=== PATIENT | male | born 1985 | race Caucasian/White ===

== ENCOUNTER 2016-10-26 13:27 | Emergency (ER) | payer MEDICAID ==
[~2016-10-26] VITALS: Ht 182.9 cm; Wt 72.6 kg
--- NOTE | 2016-10-26 13:36 | NUR ---
Pt BIB [facility] with [employer], cuffed to cot, reports pt was naked in street, acting altered. Pt appears anxious and twitchy. Pt transfered to bed 1B, cooperative, no restraints necessary, [employer] released pt. Pt denies CP, SOB, dizziness, n/v, no other complaints, no distress noted.
--- NOTE | 2016-10-26 14:00 | NUR ---
Pt refused blood draw and can not yet provide a urine sample.
--- NOTE | 2016-10-26 14:40 | NUR ---
Psych entry level account manager, Jorge Jung, determined that pt does not qualify for 5150 hold.
--- NOTE | 2016-10-26 15:02 | NUR ---
Gave pt d/c instructions and MH referral sources, verbalized understanding.
[2016-10-26 15:37] VITALS: BP 110/50
== END 2016-10-26 15:40 | disposition home or self-care (01) ==
LOC: ER 13:27
DX: F99 Mental disorder, not otherwise specified (principal); F31.9 Bipolar disorder, unspecified; F41.9 Anxiety disorder, unspecified
CPT/HCPCS: 99284; A4663

== ENCOUNTER 2016-12-04 17:26 | Emergency (ER) | payer MEDICAID ==
[~2016-12-04] VITALS: Ht 177.8 cm; Wt 68.0 kg
--- NOTE | 2016-12-04 17:37 | NUR ---
PATIENT IS AWAKE BUT SLEEPY. HE IS COMBATIVE AT TIMES, PULLING OFF THE RADIOCOMMUNICATIONS TECHNICIAN LEADS. HE IS TRYING TO GET UP AND WALK BUT HE IS A FALL RISK. SITTER CALLED TO BEDSIDE FOR CONSTANT OBSERVATION. DR BLACKWELL AWARE. MEDICATION GIVEN NOTED. PT ON CONTINOUS CARDIAC AND BEHAVIORAL MONITORING. PT ON RESTRAINTS DUE TO BEHAVIOR AND INTERUPTION OF CARE.
[2016-12-04] MEDS ORDERED: MIDAZOLAM HCL 2 MG/2 ML VIAL IM ONE (17:45)
[2016-12-04] MEDS ORDERED: IV NORMAL SALINE 1000 ML BAG IV ONE ×5 (17:45→23:30)
[2016-12-04] MEDS ORDERED: MIDAZOLAM HCL 5 MG/ML VIAL ONE ×2 (17:46→17:53)
[2016-12-04 17:55] LABS: *BILIRUBIN,URIN NEGATIVE (NEGATIVE); *BLOOD, URINE NEGATIVE (NEGATIVE); *CLARITY,URINE CLEAR (CLEAR); *KETONES,URINE NEGATIVE (NEGATIVE); *PROTEIN,URINE NEGATIVE (NEGATIVE); *UROBILINOGEN,URINE 0.2 E.U./dl (NORMAL); LEUKOCYTE ESTERASE ,URINE NEGATIVE (NEGATIVE); NITRITE, URINE NEGATIVE (NEGATIVE); UGLUCOSE NEGATIVE (NEGATIVE)
[2016-12-04 18:02] LABS: BASOPHILS % (AUTO) 0.4 % (0.0-2.0); EOSINOPHILS # (AUTO) 0.3 K/uL (0.0-0.7); EOSINOPHILS % (AUTO) 3.2 % (0.0-7.0); HEMATOCRIT 41.7 % (40-50); HEMOGLOBIN 13.9 G/DL (14.0-18.0); LYMPHOCYTES # (AUTO) 2.6 K/UL (0.8-4.8); LYMPHOCYTES % (AUTO) 30.7 % (20.5-51.5); MEAN CORPUSCULAR HEMOGLOBIN 31.6 UUG (27.0-31.0); MEAN CORPUSCULAR HGB CONC 33 g/dL (32.0-37.0); MEAN CORPUSCULAR VOLUME 94.6 FL (82.0-92.0); MONOCYTES # (AUTO) 0.7 K/UL (0.1-1.30); NEUTROPHILS % (AUTO) 57.7 % (38.5-71.5); PLATELET COUNT (AUTO) 285 K/UL (150-450); RED BLOOD CELL COUNT(AUTO) 4.41 MIL/UL (4.7-6.1); WHITE BLOOD COUNT (AUTO) 8.6 K/UL (4.0-11.2)
[2016-12-04 18:04] LABS: CARBON DIOXIDE 28 mmol/L (21-32); CHLORIDE 107 mmol/L (98-107); CREATININE 0.9 mg/dL (0.6-1.3); GLUCOSE 102 mg/dL (74-106); POTASSIUM 3.6 mmol/L (3.5-5.1); UREA NITROGEN, BLOOD 9 mg/dL (7-18)
[2016-12-04 18:10] LABS: ALANINE AMINOTRANSFERASE 22 U/L (16-63); ALKALINE PHOSPHATASE 63 U/L (50-136); ASPARTATE AMINOTRANSFERASE 17 U/L (15-37); BILIRUBIN,DIRECT 0.1 mg/dL (0.0-0.2); BILIRUBIN,TOTAL 0.3 mg/dL (0.2-1.0)
[2016-12-04 18:12] LABS: ACETAMINOPHEN < 2.0 ug/mL (10-30)
[2016-12-04 18:13] LABS: ETHANOL < 3 MG/DL (0-0)
[2016-12-04 18:15] LABS: *AMPHETAMINE, URINE NEGATIVE (NEGATIVE); *BARBITURATE, URINE NEGATIVE (NEGATIVE); *CANNABINOID, URINE POSITIVE (NEGATIVE); *COCCAINE, URINE NEGATIVE (NEGATIVE); *OPIATE, URINE NEGATIVE (NEGATIVE); *PHENCYCLIDINE SCREEN,URINE NEGATIVE (NEGATIVE)
[2016-12-04 18:21] LABS: *COLOR,URINE STRAW (YELLOW); WBC,URINE NONE SEEN /HPF (0-3)
--- NOTE | 2016-12-04 18:21 | NUR ---
PATIENT STILL TRYING TO GET OUT OF BED AT TIMES. AND HE IS STILL TRYING TO REMOVE HIS MONITOR LEADS AND IV. RESTRAINTS STILL ON.
[2016-12-04 18:30] LABS: THYROID STIMULATING HORMONE 2.963 mIU/mL (0.358-3.740)
[2016-12-04] MEDS ORDERED: LORAZEPAM 2 MG/1 ML VIAL IV ONE ×2 (19:15→22:45)
--- NOTE | 2016-12-04 19:15 | NUR ---
Patient received in room 4B, 4 point nylon restraints present. Patient remains agitated, he continually moves in bed in an attempt to elope the bed. Patient is A/O x0, does not make sense at this time, and is frequently yelling out. 1:1 sitter at bedside for safety.
[2016-12-04] MEDS ORDERED: LORAZEPAM 2 MG/1 ML VIAL ONE ×2 (19:23→23:01)
--- NOTE | 2016-12-04 21:43 | NUR ---
Call placed to Jorge Jung for PET evaluation, due to patient's LOC/behavior he will be in to perform interview at 0700.
--- NOTE | 2016-12-04 22:45 | NUR ---
PATIENT AGITATED,SCREAMING. SITTER AT BEDSIDE. OFFERED PO FLUID AND URINAL. DECREASED STIMULI. NOT EFFECTIVE. DR STACK MADE AWARE
--- NOTE | 2016-12-05 00:18 | NUR ---
Patient remains agitated and confused despite numerous hours, IV fluids, and medications. Patient was observed voiding on self. Patient's linens and clothing changed, patient repositioned, circulation checked and WNL. Patient still unable to answer questions but is able to make his needs known in full sentences.
--- NOTE | 2016-12-05 00:29 | NUR ---
Patient moved to psychiatric equipped room, all items removed for safety, patient's lower extremety restraints removed at this time. Patient remains A/O x0, is unable to answer questions or follow commands, is able to make needs known in full sentences but returns to sleep after making statement. To room 3A, 1:1 sitter present at bedside for safety.
[2016-12-05] MEDS ORDERED: IV NORMAL SALINE 1000 ML BAG IV ONE (03:00)
--- NOTE | 2016-12-05 07:05 | NUR ---
Pt is arousable but very lethergic, 1 to 1 sitter at the bedside. vitals stable. Jorge baker from PET attempt to interview pt.
--- NOTE | 2016-12-05 09:30 | NUR ---
Pt remaines very lethergic, arousable to touch and able to follow simple direction, mumble unrecognizable words when asked questions. Pt goes back to sleep as soon as not talked to or touched.
--- NOTE | 2016-12-05 10:16 | NUR ---
Pt is awake, walked w/ staedy gait to bathroom. eating breakfast. Pt gave father's phone number.
--- NOTE | 2016-12-05 10:40 | NUR ---
Pt's father called several times and no respones recieved. Pt resting in bed w/ both eyes closed.
--- NOTE | 2016-12-05 12:10 | NUR ---
Pt is awake and stating to call his father to take him home. phone provided but pt states unable to speak/reach dad.
--- NOTE | 2016-12-05 12:57 | NUR ---
Pt is awake a/o x4 and appropiate. Walking in the room.
--- NOTE | 2016-12-05 13:09 | NUR ---
IV removed. Catheter intact and site benign. Pressure and 4x4 gauze applied to site. No bleeding noted.
--- NOTE | 2016-12-05 13:10 | NUR ---
Pt awake, alert and oriented x 4. Pt spoke with his father via telephone and ambulated out of ER with steady gait.
[2016-12-05 13:34] VITALS: BP 119/78
== END 2016-12-05 13:35 | disposition home or self-care (01) ==
LOC: EDBD 17:26 → MERGE 17:26 → ER 17:26
DX: T43.592A Poisoning by other antipsychotics and neuroleptics, intentional self-harm, initial encounter (principal); Y92.9 Unspecified place or not applicable
CPT/HCPCS: 36415; 71010; 80307; 84443; 85025; 85730; 93005; A4663; G0480; G0480-TC; J2060; J2250; J7030